=== PATIENT | male | born 1955 | race Caucasian/White ===

== ENCOUNTER 2017-04-27 13:12 | Outpatient (CLI) | payer OTHER | END 2017-04-27 17:00 | disposition home or self-care (01) | LOC: HPC 13:12 | DX: K80.20 Calculus of gallbladder without cholecystitis without obstruction (principal); K85.10 Biliary acute pancreatitis without necrosis or infection; K27.9 Peptic ulcer, site unspecified, unspecified as acute or chronic, without hemorrhage or perforation | CPT/HCPCS: Z7500 ==

== ENCOUNTER 2017-06-01 15:39 | Outpatient (CLI) | payer OTHER | END 2017-06-01 17:00 | disposition home or self-care (01) | LOC: HPC 15:39 | DX: K80.20 Calculus of gallbladder without cholecystitis without obstruction (principal) | CPT/HCPCS: Z7500 ==

== ENCOUNTER 2017-07-13 14:50 | Outpatient (CLI) | payer OTHER | END 2017-07-13 15:49 | disposition home or self-care (01) | LOC: HPC 14:50 | DX: K85.90 Acute pancreatitis without necrosis or infection, unspecified (principal); K86.89 Other specified diseases of pancreas; K81.1 Chronic cholecystitis | CPT/HCPCS: Z7500 ==